=== PATIENT | male | born 1985 | race Caucasian/White ===

== ENCOUNTER 2023-05-06 13:33 | Emergency (ER) | payer MEDICAID ==
[~2023-05-06 13:33] MED LIST: Lidocaine 1% 5 ML VIAL INJECT ONE; Lidocaine 1% 5 ML VIAL ONE
[2023-05-06] MEDS ORDERED: Bacitracin/Neomycin/Polymyxin B Oint 0.9 GM U/D Packet TOP ONE (13:44)
== END 2023-05-06 13:55 | disposition home or self-care (01) ==
LOC: EDBD 13:33 → CC.ED 13:33
DX: S61.211A Laceration without foreign body of left index finger without damage to nail, initial encounter (principal); W26.8XXA Contact with other sharp object(s), not elsewhere classified, initial encounter
CPT/HCPCS: 12001; 99282; 99283; A9270-GY; J3490

== ENCOUNTER 2024-11-03 08:13 | Day surgery (SDC) | payer OTHER ==
[2024-11-03] MEDS: Sodium Chloride 0.9% 250 ML IV SCH (08:31)
[2024-11-03] MEDS ORDERED: Midazolam 1 MG/ML 2 ML SDV ONE (08:40)
[2024-11-03] MEDS ORDERED: Ketamine 200 MG/20 ML MDV ONE (08:40)
[2024-11-03] MEDS ORDERED: fentaNYL 50 MCG/ML SDV ONE (08:40)
[2024-11-03] MEDS ORDERED: Lidocaine 2% 20 ML MDV ONE (08:40)
[2024-11-03] MEDS ORDERED: Propofol 200 MG/20 ML SDV ONE (08:40)
== END 2024-11-03 09:54 | disposition home or self-care (01) ==
LOC: CC.SDS 08:13
PROVIDERS: ATTEND Family Medicine
DX: K29.80 Duodenitis without bleeding (principal); K21.9 Gastro-esophageal reflux disease without esophagitis; K31.89 Other diseases of stomach and duodenum; K44.9 Diaphragmatic hernia without obstruction or gangrene; E66.9 Obesity, unspecified; M54.89 Other dorsalgia; G89.29 Other chronic pain
CPT/HCPCS: 00731; 87081; J2003; J2250; J2704; J3010; J3490

== ENCOUNTER 2025-01-20 11:05 | Emergency (ER) | payer OTHER ==
[2025-01-20] MEDS: Take Home: Cephalexin 500 MG Cap, 6 Cap Pack PO ONE (12:02)
[2025-01-20] MEDS: cefTRIAXone 2 GM, Lidocaine 1% 4.2 ML IM SCH (12:02)
== END 2025-01-20 12:45 | disposition home or self-care (01) ==
LOC: CC.ED 11:05
DX: L03.113 Cellulitis of right upper limb (principal); Z79.899 Other long term (current) drug therapy
CPT/HCPCS: 96372; 99282; A9270-GY; J0696; J2003

== ENCOUNTER 2025-01-21 19:39 | Inpatient (IN) | payer OTHER ==
[2025-01-21 20:07] LABS: BASOPHILS ABSOLUTE AUTO 0.04 10^3/uL (0.00-0.50); BASOPHILS PERCENT AUTO 0.3 % (0-1); EOSINOPHILS ABSOLUTE AUTO 0.15 10^3/uL (0.00-1.50); EOSINOPHILS PERCENT AUTO 1.2 % (0-6); IMMATURE GRAN ABSOLUTE AUTO 0.03 10^3/uL (0.00-0.49); IMMATURE GRAN PERCENT AUTO 0.2 % (0.0-4.9); LYMPHOCYTES ABSOLUTE AUTO 2.13 10^3/uL (0.60-5.00); LYMPHOCYTES PERCENT AUTO 16.4 % (24-44); MONOCYTES ABSOLUTE AUTO 0.97 10^3/uL (0.00-1.50); MONOCYTES PERCENT AUTO 7.5 % (0-10); NEUTROPHILS ABSOLUTE AUTO 9.63 x10^3/uL (1.80-8.00); NEUTROPHILS PERCENT AUTO 74.4 % (41-71); PLATELET COUNT,PLT 306 10^3/uL (150-400); RED BLOOD CELL COUNT 4.37 x10^6/uL (4.50-6.00); WHITE BLOOD CELL COUNT,WBC 13.0 10^3/uL (4.0-11.0)
[2025-01-21] MEDS: VANCOmycin 2 GM/400 ML 2 GM in Premix Bag 1 BAG IV ONE (20:15)
[2025-01-21 20:20] LABS: ALANINE AMINOTRANSFERASE,ALT 84.0 U/L (12-78); ASPARTATE AMNIOTRANSFERASE,AST 44.0 U/L (15-37); BILIRUBIN TOTAL 0.3 mg/dL (0.0-1.0); BLOOD UREA NITROGEN,BUN 16.0 mg/dL (7-18); CARBON DIOXIDE,CO2 28.0 mmol/L (21-32); CHLORIDE,CL 101.0 mEq/L (98-106); CREATININE 1.2 mg/dL (0.7-1.3); EST CRCL DRUG DOSING (CG) 82.65 mL/min; GLUCOSE RANDOM 122.0 mg/dL (75-99); POTASSIUM,K 3.9 mEq/L (3.5-5.0); PROTEIN TOTAL,TP 7.7 g/dL (6.4-8.2); SODIUM,NA 139.0 mEq/L (136-145)
[2025-01-21 20:26] LABS: ESTIMATED GFR 79.0 mL/min (>=60)
[2025-01-21] MEDS ORDERED: Ondansetron 4 MG Tab.DIS PO PRN (22:06)
[2025-01-21] MEDS ORDERED: Ondansetron 4 MG/2 ML SDV IV PRN (22:06)
[2025-01-22] MEDS: Vitamin B Complex Cap PO SCH (07:28)
[2025-01-22] MEDS: Cholecalciferol (Vitamin D3) 5,000 UNIT Tab PO SCH (07:28)
[2025-01-22 07:59] LABS: BASOPHILS ABSOLUTE AUTO 0.03 10^3/uL (0.00-0.50); BASOPHILS PERCENT AUTO 0.3 % (0-1); EOSINOPHILS ABSOLUTE AUTO 0.16 10^3/uL (0.00-1.50); EOSINOPHILS PERCENT AUTO 1.5 % (0-6); IMMATURE GRAN ABSOLUTE AUTO 0.02 10^3/uL (0.00-0.49); IMMATURE GRAN PERCENT AUTO 0.2 % (0.0-4.9); LYMPHOCYTES ABSOLUTE AUTO 2.47 10^3/uL (0.60-5.00); LYMPHOCYTES PERCENT AUTO 23.5 % (24-44); MONOCYTES ABSOLUTE AUTO 1.05 10^3/uL (0.00-1.50); MONOCYTES PERCENT AUTO 10.0 % (0-10); NEUTROPHILS ABSOLUTE AUTO 6.79 x10^3/uL (1.80-8.00); NEUTROPHILS PERCENT AUTO 64.5 % (41-71); PLATELET COUNT,PLT 283 10^3/uL (150-400); RED BLOOD CELL COUNT 4.31 x10^6/uL (4.50-6.00); WHITE BLOOD CELL COUNT,WBC 10.5 10^3/uL (4.0-11.0)
[2025-01-22] MEDS ORDERED: Non-Formulary Medication 1 Each (Magnesium Oxide/Mag Aa Chelate [Magnesium] 300 MG Capsule PO SCH (08:00)
[2025-01-22 08:29] LABS: ALANINE AMINOTRANSFERASE,ALT 73.0 U/L (12-78); ASPARTATE AMNIOTRANSFERASE,AST 31.0 U/L (15-37); BILIRUBIN TOTAL 0.7 mg/dL (0.0-1.0); BLOOD UREA NITROGEN,BUN 13.0 mg/dL (7-18); CARBON DIOXIDE,CO2 26.0 mmol/L (21-32); CHLORIDE,CL 105.0 mEq/L (98-106); CREATININE 1.1 mg/dL (0.7-1.3); EST CRCL DRUG DOSING (CG) 90.16 mL/min; GLUCOSE RANDOM 96.0 mg/dL (75-99); POTASSIUM,K 4.4 mEq/L (3.5-5.0); PROTEIN TOTAL,TP 7.1 g/dL (6.4-8.2); SODIUM,NA 140.0 mEq/L (136-145)
[2025-01-22 08:37] LABS: ESTIMATED GFR 88.0 mL/min (>=60)
[2025-01-22] MEDS: VANCOmycin 1.25 GM/250 ML 1.25 GM in Premix Bag 1 BAG IV ONE (10:30)
[2025-01-22] MEDS ORDERED: VANCOmycin 1.25 GM/250 ML 1.25 GM in Premix Bag 1 BAG IV SCH (20:00)
== END 2025-01-22 12:20 | disposition home or self-care (01) | DRG 603 ==
LOC: CC.ED 19:39 → CC.MS 20:48 → UNDOADMIN 21:10 → CC.MS 21:10
PROVIDERS: ADMIT Nurse Practitioner; ATTEND Nurse Practitioner
PROC: 0X9D0ZZ Drainage of Right Lower Arm, Open Approach (ICD-10-PCS; principal; 2025-01-21)
DX: L03.113 Cellulitis of right upper limb (principal); I10 Essential (primary) hypertension; F17.200 Nicotine dependence, unspecified, uncomplicated; Z91.018 Allergy to other foods; Z79.899 Other long term (current) drug therapy
CPT/HCPCS: 10060; 36415; 80053; 80202; 83605; 83735; 85025; 86140; 87040; 87070; 87077; 87186; 87205; 96365; 99284-25; A9270-GY; J2003; J3372; J7030

== ENCOUNTER 2025-01-22 15:31 | Inpatient (IN) | payer OTHER ==
[2025-01-22] MEDS ORDERED: Ondansetron 4 MG Tab.DIS PO PRN (16:02)
[2025-01-22] MEDS ORDERED: Acetaminophen/oxyCODONE 325-5 MG Tab PO PRN (16:02)
[2025-01-22] MEDS ORDERED: Ondansetron 4 MG/2 ML SDV IV PRN (16:02)
[2025-01-22] MEDS: VANCOmycin 1.25 GM/250 ML 1.25 GM in Premix Bag 1 BAG IV SCH (19:51)
[2025-01-23 07:29] LABS: ALANINE AMINOTRANSFERASE,ALT 108.0 U/L (12-78); ASPARTATE AMNIOTRANSFERASE,AST 43.0 U/L (15-37); BASOPHILS ABSOLUTE AUTO 0.04 10^3/uL (0.00-0.50); BASOPHILS PERCENT AUTO 0.5 % (0-1); BILIRUBIN TOTAL 0.3 mg/dL (0.0-1.0); BLOOD UREA NITROGEN,BUN 11.0 mg/dL (7-18); CARBON DIOXIDE,CO2 26.0 mmol/L (21-32); CHLORIDE,CL 106.0 mEq/L (98-106); CREATININE 1.1 mg/dL (0.7-1.3); EOSINOPHILS ABSOLUTE AUTO 0.24 10^3/uL (0.00-1.50); EOSINOPHILS PERCENT AUTO 3.1 % (0-6); EST CRCL DRUG DOSING (CG) 90.16 mL/min; GLUCOSE RANDOM 115.0 mg/dL (75-99); IMMATURE GRAN ABSOLUTE AUTO 0.02 10^3/uL (0.00-0.49); IMMATURE GRAN PERCENT AUTO 0.3 % (0.0-4.9); LYMPHOCYTES ABSOLUTE AUTO 2.13 10^3/uL (0.60-5.00); LYMPHOCYTES PERCENT AUTO 27.7 % (24-44); MONOCYTES ABSOLUTE AUTO 0.75 10^3/uL (0.00-1.50); MONOCYTES PERCENT AUTO 9.8 % (0-10); NEUTROPHILS ABSOLUTE AUTO 4.51 x10^3/uL (1.80-8.00); NEUTROPHILS PERCENT AUTO 58.6 % (41-71); PLATELET COUNT,PLT 267 10^3/uL (150-400); POTASSIUM,K 4.1 mEq/L (3.5-5.0); PROTEIN TOTAL,TP 6.7 g/dL (6.4-8.2); RED BLOOD CELL COUNT 4.02 x10^6/uL (4.50-6.00); SODIUM,NA 141.0 mEq/L (136-145); WHITE BLOOD CELL COUNT,WBC 7.7 10^3/uL (4.0-11.0)
[2025-01-23] MEDS: Vitamin B Complex Cap PO SCH (07:49)
[2025-01-23] MEDS: Cholecalciferol (Vitamin D3) 5,000 UNIT Tab PO SCH (07:50)
[2025-01-23 08:04] LABS: ESTIMATED GFR 88.0 mL/min (>=60)
[2025-01-24 07:44] LABS: BASOPHILS ABSOLUTE AUTO 0.06 10^3/uL (0.00-0.50); BASOPHILS PERCENT AUTO 0.7 % (0-1); EOSINOPHILS ABSOLUTE AUTO 0.28 10^3/uL (0.00-1.50); EOSINOPHILS PERCENT AUTO 3.5 % (0-6); IMMATURE GRAN ABSOLUTE AUTO 0.04 10^3/uL (0.00-0.49); IMMATURE GRAN PERCENT AUTO 0.5 % (0.0-4.9); LYMPHOCYTES ABSOLUTE AUTO 2.54 10^3/uL (0.60-5.00); LYMPHOCYTES PERCENT AUTO 31.5 % (24-44); MONOCYTES ABSOLUTE AUTO 0.72 10^3/uL (0.00-1.50); MONOCYTES PERCENT AUTO 8.9 % (0-10); NEUTROPHILS ABSOLUTE AUTO 4.43 x10^3/uL (1.80-8.00); NEUTROPHILS PERCENT AUTO 54.9 % (41-71); PLATELET COUNT,PLT 313 10^3/uL (150-400); RED BLOOD CELL COUNT 4.33 x10^6/uL (4.50-6.00); WHITE BLOOD CELL COUNT,WBC 8.1 10^3/uL (4.0-11.0)
[2025-01-24 07:56] LABS: ALANINE AMINOTRANSFERASE,ALT 124.0 U/L (12-78); ASPARTATE AMNIOTRANSFERASE,AST 50.0 U/L (15-37); BILIRUBIN TOTAL 0.3 mg/dL (0.0-1.0); BLOOD UREA NITROGEN,BUN 16.0 mg/dL (7-18); CARBON DIOXIDE,CO2 27.0 mmol/L (21-32); CHLORIDE,CL 103.0 mEq/L (98-106); CREATININE 1.1 mg/dL (0.7-1.3); EST CRCL DRUG DOSING (CG) 90.16 mL/min; GLUCOSE RANDOM 92.0 mg/dL (75-99); POTASSIUM,K 4.2 mEq/L (3.5-5.0); PROTEIN TOTAL,TP 7.3 g/dL (6.4-8.2); SODIUM,NA 140.0 mEq/L (136-145)
[2025-01-24 07:58] LABS: ESTIMATED GFR 88.0 mL/min (>=60)
[2025-01-25] MEDS: VANCOmycin 1.25 GM/250 ML 1.25 GM in Premix Bag 1 BAG IV ONE (05:23)
[2025-01-25 07:47] LABS: BASOPHILS ABSOLUTE AUTO 0.05 10^3/uL (0.00-0.50); BASOPHILS PERCENT AUTO 0.6 % (0-1); EOSINOPHILS ABSOLUTE AUTO 0.25 10^3/uL (0.00-1.50); EOSINOPHILS PERCENT AUTO 3.1 % (0-6); IMMATURE GRAN ABSOLUTE AUTO 0.04 10^3/uL (0.00-0.49); IMMATURE GRAN PERCENT AUTO 0.5 % (0.0-4.9); LYMPHOCYTES ABSOLUTE AUTO 2.68 10^3/uL (0.60-5.00); LYMPHOCYTES PERCENT AUTO 33.2 % (24-44); MONOCYTES ABSOLUTE AUTO 0.72 10^3/uL (0.00-1.50); MONOCYTES PERCENT AUTO 8.9 % (0-10); NEUTROPHILS ABSOLUTE AUTO 4.33 x10^3/uL (1.80-8.00); NEUTROPHILS PERCENT AUTO 53.7 % (41-71); PLATELET COUNT,PLT 335 10^3/uL (150-400); RED BLOOD CELL COUNT 4.49 x10^6/uL (4.50-6.00); WHITE BLOOD CELL COUNT,WBC 8.1 10^3/uL (4.0-11.0)
[2025-01-25 08:16] LABS: ALANINE AMINOTRANSFERASE,ALT 134.0 U/L (12-78); ASPARTATE AMNIOTRANSFERASE,AST 40.0 U/L (15-37); BILIRUBIN TOTAL 0.3 mg/dL (0.0-1.0); BLOOD UREA NITROGEN,BUN 18.0 mg/dL (7-18); CARBON DIOXIDE,CO2 28.0 mmol/L (21-32); CHLORIDE,CL 101.0 mEq/L (98-106); CREATININE 1.1 mg/dL (0.7-1.3); EST CRCL DRUG DOSING (CG) 90.16 mL/min; GLUCOSE RANDOM 99.0 mg/dL (75-99); POTASSIUM,K 4.4 mEq/L (3.5-5.0); PROTEIN TOTAL,TP 7.6 g/dL (6.4-8.2); SODIUM,NA 137.0 mEq/L (136-145)
[2025-01-25 08:22] LABS: ESTIMATED GFR 88.0 mL/min (>=60)
[2025-01-25] MEDS: VANCOmycin 1.25 GM/250 ML 1.25 GM in Premix Bag 1 BAG IV SCH (19:19)
[2025-01-26 07:27] LABS: BASOPHILS ABSOLUTE AUTO 0.06 10^3/uL (0.00-0.50); BASOPHILS PERCENT AUTO 0.8 % (0-1); EOSINOPHILS ABSOLUTE AUTO 0.22 10^3/uL (0.00-1.50); EOSINOPHILS PERCENT AUTO 3.0 % (0-6); IMMATURE GRAN ABSOLUTE AUTO 0.05 10^3/uL (0.00-0.49); IMMATURE GRAN PERCENT AUTO 0.7 % (0.0-4.9); LYMPHOCYTES ABSOLUTE AUTO 2.17 10^3/uL (0.60-5.00); LYMPHOCYTES PERCENT AUTO 29.2 % (24-44); MONOCYTES ABSOLUTE AUTO 0.79 10^3/uL (0.00-1.50); MONOCYTES PERCENT AUTO 10.6 % (0-10); NEUTROPHILS ABSOLUTE AUTO 4.14 x10^3/uL (1.80-8.00); NEUTROPHILS PERCENT AUTO 55.7 % (41-71); PLATELET COUNT,PLT 335 10^3/uL (150-400); RED BLOOD CELL COUNT 4.66 x10^6/uL (4.50-6.00); WHITE BLOOD CELL COUNT,WBC 7.4 10^3/uL (4.0-11.0)
[2025-01-26 07:50] LABS: ALANINE AMINOTRANSFERASE,ALT 132.0 U/L (12-78); ASPARTATE AMNIOTRANSFERASE,AST 41.0 U/L (15-37); BILIRUBIN TOTAL 0.3 mg/dL (0.0-1.0); BLOOD UREA NITROGEN,BUN 16.0 mg/dL (7-18); CARBON DIOXIDE,CO2 32.0 mmol/L (21-32); CHLORIDE,CL 102.0 mEq/L (98-106); CREATININE 1.0 mg/dL (0.7-1.3); EST CRCL DRUG DOSING (CG) 99.18 mL/min; GLUCOSE RANDOM 111.0 mg/dL (75-99); POTASSIUM,K 4.0 mEq/L (3.5-5.0); PROTEIN TOTAL,TP 7.7 g/dL (6.4-8.2); SODIUM,NA 138.0 mEq/L (136-145)
[2025-01-26 07:53] LABS: ESTIMATED GFR 98.0 mL/min (>=60)
== END 2025-01-26 11:05 | disposition home or self-care (01) | DRG 872 ==
LOC: UNDOADMIN 15:31 → CC.MS 15:31
PROVIDERS: ADMIT Nurse Practitioner; ATTEND Nurse Practitioner
DX: R78.81 Bacteremia (principal); L03.113 Cellulitis of right upper limb; I10 Essential (primary) hypertension; B95.62 Methicillin resistant Staphylococcus aureus infection as the cause of diseases classified elsewhere; Z91.018 Allergy to other foods; Z79.899 Other long term (current) drug therapy; Z79.891 Long term (current) use of opiate analgesic
CPT/HCPCS: 36415; 80053; 80202; 83735; 85025; 87040; 99223; 99232; 99233; 99239; A9270-GY; J3372; J7030